=== PATIENT | male | born 1950 | race Caucasian/White ===

== ENCOUNTER → 2018-11-25 | Outpatient (CLI) | payer MEDICARE, OTHER ==
--- NOTE | 2018-11-25 18:43 | ECHOF ---
Referral Reason:R01.1 Cardiac Murmur MEASUREMENTS -------- HEIGHT: 190.5 cm WEIGHT: 117.9 kg BP: RVIDd: 4.3 cm (< 3.3) IVSd: 1.4 cm (0.6 - 1.1) LVIDd: 4.1 cm (3.9 - 5.3) LVPWd: 1.8 cm (0.6 - 1.1) IVSs: 2.1 cm LVIDs: 2.7 cm LVPWs: 2.4 cm LAESV Index (A-L): 41.80 ml/m Ao Diam: 4.2 cm (2.0 - 3.7) AV Cusp: 1.5 cm (1.5 - 2.6) MV EXCURSION: 14.396 mm (> 18.000) MV EF SLOPE: 58 mm/s (70 - 150) EPSS: 0.9 cm MV E Gerry: 0.87 m/s MV DecT: 357 ms MV A Gerry: 1.16 m/s MV E/A Ratio: 0.75 AV maxP.57 mmHg AV meanP.61 mmHg RAP: 5.00 mmHg RVSP: 30.50 mmHg FINDINGS -------- Resting bradycardia (HR<60bpm). This was a technically adequate study. The left ventricular size is normal. There is moderate concentric left ventricular hypertrophy. O verall left ventricular systolic function is normal with, an EF between 55 - 60 %. Increased Lap Gr jeana II Diastolic Dysfunction. Septal wall motion is delayed and consistent with prior cardiac surge ry. The right ventricle is moderately enlarged. LA is severely dilated >40 ml/m2 The right atrium is mildly enlarged. Interatrial and interventricular septum intact. There is moderate aortic valve sclerosis. There is no evidence of aortic regurgitation. There is mild aortic stenosis present. Peak/mean gradient across the Aortic Valve is 22.57mmHg / 10.61mmHg. Moderate mitral annular calcification present. Mild mitral regurgitation is present. Mild tricuspid regurgitation present. There is no evidence of pulmonary hypertension. The right v entricular systolic pressure, as measured by Doppler, is 30.50mmHg. Trace/mild (physiologic) pulmonic regurgitation. The aortic root is dilated measuring {4.2 cm}. IVC Not well visulized. There is no pericardial effusion. CONCLUSIONS -------- 1. Resting bradycardia (HR<60bpm). 2. This was a technically adequate study. 3. The left ventricular size is normal. 4. There is moderate concentric left ventricular hypertrophy. 5. Overall left ventricular systolic function is normal with, an EF between 55 - 60 %. 6. Increased Lap Grade II Diastolic Dysfunction. 7. Septal wall motion is delayed and consistent with prior cardiac surgery. 8. The right ventricle is moderately enlarged. 9. LA is severely dilated >40 ml/m2 10. The right atrium is mildly enlarged. 11. Interatrial and interventricular septum intact. 12. There is moderate aortic valve sclerosis. 13. There is no evidence of aortic regurgitation. 14. There is mild aortic stenosis present. 15. Peak/mean gradient across the Aortic Valve is 22.57mmHg / 10.61mmHg. 16. Moderate mitral annular calcification present. 17. Mild mitral regurgitation is present. 18. Mild tricuspid regurgitation present. 19. There is no evidence of pulmonary hypertension. 20. The right ventricular systolic pressure, as measured by Doppler, is 30.50mmHg. 21. Trace/mild (physiologic) pulmonic regurgitation. 22. The aortic root is dilated measuring 4.2cm. 23. IVC Not well visulized. 24. There is no pericardial effusion. [employer]BILE [employer]ROL OFFICER: Neeru Kyle RDCS
== END | disposition home or self-care (01) ==
LOC: RADECHMAIN 12:59
PROVIDERS: ATTEND Family Medicine
DX: I35.0 Nonrheumatic aortic (valve) stenosis (principal); I37.1 Nonrheumatic pulmonary valve insufficiency; I08.1 Rheumatic disorders of both mitral and tricuspid valves
CPT/HCPCS: 93306

== ENCOUNTER → 2023-12-28 | Outpatient (CLI) | payer MEDICARE, OTHER ==
[2023-12-28 15:18] LABS: Appearance,Urine Clear (Clear); Bilirubin,Urine Negative (Negative); Blood,Urine Negative (Negative); Color,Urine Yellow (Yellow); Ketones,Urine Negative (Negative); Nitrite,Urine Negative (Negative); Specific Gravity,Urine 1.017 (1.001-1.030)
[2023-12-28 15:34] LABS: ALT 15 U/L (10-49); AST 16 U/L (14-35); Albumin 4.1 g/dL (3.8-4.9); Albumin/Globulin Ratio 1.86 Ratio (1.60-3.17); Alkaline Phosphatase 61 U/L (41-126); Calcium 8.9 mg/dL (8.7-10.3); Carbon Dioxide 24.9 mmol/L (21.6-31.8); Chloride 106 mmol/L (96-109); Chol/HDL Ratio 3.81 Ratio; Globulin 2.2 g/dL (1.6-3.3); Glucose 109 mg/dL (70-110); LDL Cholesterol,Calculated 70.5 mg/dL (0.0-131.0); Potassium 4.4 mmol/L (3.5-5.5); Sodium 143 mmol/L (135-145); Total Bilirubin 0.7 mg/dL (0.3-1.2); Total Protein 6.3 g/dL (6.2-8.2)
[2023-12-28 16:23] LABS: HCT 42.6 % (39.6-50.0); HGB 14.4 g/dL (13.0-17.0); MCH 32.4 pg (27.0-32.0); MCHC 33.8 g/dL (32.0-37.0); MCV 95.9 FL (80.0-97.0); Mean Platelet Volume 10.9 FL (9.5-12.2); NRBC Per 100 WBC 0 X 10*3/uL (0.00-0.01); Platelet Count 161 X 10*3/uL (140-440); RBC 4.44 X 10*6/uL (4.40-5.60); RDW 13.9 % (11.5-14.5); WBC 4.94 X 10*3/uL (4.50-10.00)
[2023-12-28 18:55] LABS: Microalbumin Creatinine Ratio <10 mg/g Cr (0-30)
== END | disposition home or self-care (01) ==
LOC: LABWHC1 11:28
PROVIDERS: ATTEND Family Medicine
DX: I10 Essential (primary) hypertension (principal); E78.5 Hyperlipidemia, unspecified; E11.9 Type 2 diabetes mellitus without complications; N40.1 Benign prostatic hyperplasia with lower urinary tract symptoms; E55.9 Vitamin D deficiency, unspecified
CPT/HCPCS: 36415; 80053; 80061; 81003; 82043; 82306; 82570; 83036; 84153; 85027

== ENCOUNTER → 2024-05-24 | Outpatient (CLI) | payer MEDICARE, OTHER ==
[2024-05-24 10:29] LABS: African American GFR (CKD) 59 (>60 ml/min/1.73 sqM); Blood Urea Nitrogen 18 mg/dL (9-20); Non-African American GFR(CKD) 51 (>60 ml/min/1.73 sqM)
--- NOTE | 2024-05-24 13:41 | CT ---
EXAMINATION TYPE: CT angio abd aorta w/Runoff CT DLP: 2499 mGycm, Automated exposure control for dose reduction was used. DATE OF EXAM: 05/24/2024 11:54 AM COMPARISON:None. CLINICAL INDICATION:Male, 74 years old with history of I70.219 EXTRM W INTRMT JEY; LEFT SIDE WEAKNE SS TECHNIQUE: Multiple thin slice sub-millimeter images were obtained through the abdomen, pelvis, and l ower extremities before and after administration of contrast. Patient was given Isovue 370, 100 cc in travenously. 3-D reconstructed images and maximum intensity projection images were obtained of the a bdomen, pelvis, and lower extremities. FINDINGS: CTA Abdomen and pelvis: Mid to distal abdominal aortic fusiform aneurysm with eccentric mural thrombu s and cobweb appearance measuring 4.7 x 3.7 cm (series 11, image 111). Atherosclerotic plaquing is id entified within the abdominal aorta. No evidence for dissection or intramural hematoma. The origins of the superior mesenteric artery, renal arteries, inferior mesenteric artery, and celiac axis are pa tent. High-grade stenosis involving single right renal artery just after the origin. Mild stenosis i nvolving the larger more superior left renal artery of the 2 renal arteries. Atherosclerotic plaquing with some mural thrombus formation is identified in the common iliac arteries. The bilateral internet salesperson al and external iliac arteries are widely patent without significant atherosclerotic disease. CTA Lower extremities: Right: The common femoral is patent. There is moderate short segment stenosis of the common femoral a rtery just before the bifurcation with calcified plaque. The superficial and deep femoral arteries ar e widely patent. The popliteal artery is patent. Anterior and posterior tibial arteries as well as th e peroneal artery are patent. Anterior and posterior tibial arteries cross the ankle. Left: The common femoral is patent. Moderate short segment stenosis of the common femoral artery just before the bifurcation with calcified and noncalcified plaque. The deep femoral artery is patent. Mu ltifocal short segment occlusion versus high-grade stenosis involving the proximal superficial femora l artery. Multifocal moderate stenosis of the distal superficial femoral artery. The popliteal artery is patent. Multifocal moderate short segment stenosis of the popliteal artery secondary to calcified plaque. Anterior and posterior tibial arteries as well as the peroneal artery are patent. Anterior a nd posterior tibial arteries cross the ankle. VISCERA: The liver, spleen, adrenal glands, kidneys, pancreas, and gallbladder are not optimally enha nced due the arterial phase utilized. LIVER: No focal lesion. Enlarged measuring at least 19.9 cm in CC dimension. The right hepatic dome i s not included in the [id number]. GALLBLADDER AND BILE DUCTS: Unremarkable. PANCREAS: Unremarkable. SPLEEN: Enlarged measuring 15.9 cm in CC dimension. ADRENAL GLANDS: Unremarkable. KIDNEYS AND URETERS: No evidence of hydronephrosis. No right renal calculus. Nonobstructive left ronnie l 3 mm calculus. Couple of left renal simple cyst measuring up to 1.9 cm. Right renal 1 cm cyst. No f ollow-up recommended. Cortical thinning of the right kidney compared to the left. PELVIS BLADDER: Unremarkable REPRODUCTIVE: Unremarkable. ABDOMEN & PELVIS STOMACH AND BOWEL: Stomach and duodenum are unremarkable. Colonic diverticulosis without evidence for acute diverticulitis. Most pronounced along the sigmoid colon. The appendix is within normal limits. No evidence of bowel obstruction. PERITONEUM: No evidence of pneumoperitoneum or free fluid. MUSCULOSKELETAL: No acute osseous abnormalities. Multilevel degenerative disc disease of the lumbar s pine. Osteoarthritic changes of the left ankle. LYMPH NODES: No evidence for lymphadenopathy. SOFT TISSUE/ABDOMINAL WALL: Small bilateral fat filled inguinal hernias. IMPRESSION: 1. Abdominal aortic aneurysm measuring 4.7 x 3.7 cm. 2. Moderate atherosclerotic disease involving abdominal aorta and lower extremity vasculature. High- grade stenosis secondary to calcified plaque involving the proximal right renal artery. Moderate shor t segment stenosis involving the right common femoral artery secondary to calcified plaque. Moderate short segment stenosis involving the left common femoral artery secondary to calcified and noncalcif ied plaque. Multifocal moderate stenosis involving the proximal and distal left superficial femoral a rtery and also the left popliteal artery. 3. At least two vessels are seen crossing the ankle joint. 4. Hepatosplenomegaly. 5. Colonic diverticulosis without evidence for acute diverticulitis. 6. Nonobstructive left renal calculus. [facility], , 05/24/2024 1:38 PM
== END | disposition home or self-care (01) ==
LOC: RADCTMAIN 09:42
PROVIDERS: ATTEND Surgery
DX: I70.1 Atherosclerosis of renal artery (principal); I70.219 Atherosclerosis of native arteries of extremities with intermittent claudication, unspecified extremity; N20.0 Calculus of kidney; I70.0 Atherosclerosis of aorta; I71.40 Abdominal aortic aneurysm, without rupture, unspecified; R16.2 Hepatomegaly with splenomegaly, not elsewhere classified; K57.30 Diverticulosis of large intestine without perforation or abscess without bleeding
CPT/HCPCS: 82565; 84520; 75635; Q9967

== ENCOUNTER → 2024-06-08 | Outpatient (CLI) | payer MEDICARE, OTHER ==
[2024-06-08 20:27] LABS: ALT 14 U/L (10-49); AST 18 U/L (14-35); BUN/Creat Ratio 13.36 Ratio (12.00-20.00); Blood Urea Nitrogen 18.7 mg/dL (9.0-27.0); Calcium 9.2 mg/dL (8.7-10.3); Carbon Dioxide 24.1 mmol/L (21.6-31.8); Chloride 105 mmol/L (96-109); Chol/HDL Ratio 3.92 Ratio; Glucose 108 mg/dL (70-110); LDL Cholesterol,Calculated 84.9 mg/dL (0.0-131.0); Potassium 4.2 mmol/L (3.5-5.5); Prostate Specific Antigen 2.31 ng/mL (0.000-6.500); Sodium 141 mmol/L (135-145)
[2024-06-08 20:38] LABS: HGB 14.9 g/dL (13.0-17.0); MCH 32.9 pg (27.0-32.0); MCHC 33.9 g/dL (32.0-37.0); MCV 97.1 FL (80.0-97.0); Mean Platelet Volume 10.8 FL (9.5-12.2); NRBC Per 100 WBC 0 X 10*3/uL (0.00-0.01); Platelet Count 133 X 10*3/uL (140-440); RBC 4.53 X 10*6/uL (4.40-5.60); RDW 13.9 % (11.5-14.5); WBC 4.28 X 10*3/uL (4.50-10.00)
== END | disposition home or self-care (01) ==
LOC: LABWHC1 12:01
PROVIDERS: ATTEND Family Medicine
DX: N40.1 Benign prostatic hyperplasia with lower urinary tract symptoms (principal); E78.5 Hyperlipidemia, unspecified; E55.9 Vitamin D deficiency, unspecified; I10 Essential (primary) hypertension
CPT/HCPCS: 36415; 80048; 80061; 82306; 83036; 84153; 84450; 84460; 85027

== ENCOUNTER → 2024-07-19 | Outpatient (CLI) | payer MEDICARE, OTHER ==
[2024-07-19 15:51] LABS: Basophils # (A) 0.02 X 10*3/uL (0.00-0.10); Basophils % (A) 0.4 %; Eosinophils # (A) 0.05 X 10*3/uL (0.04-0.35); Eosinophils % (A) 1.1 %; HCT 45.3 % (39.6-50.0); HGB 15.3 g/dL (13.0-17.0); Lymphocytes # (A) 1.23 X 10*3/uL (0.90-5.00); Lymphocytes % (A) 26.2 %; MCH 32.9 pg (27.0-32.0); MCHC 33.8 g/dL (32.0-37.0); MCV 97.4 FL (80.0-97.0); Monocytes # (A) 0.47 X 10*3/uL (0.20-1.00); NRBC Per 100 WBC 0 X 10*3/uL (0.00-0.01); Neutrophils % (A) 61.9 %; Platelet Count 135 X 10*3/uL (140-440); RBC 4.65 X 10*6/uL (4.40-5.60); RDW 13.8 % (11.5-14.5); WBC 4.69 X 10*3/uL (4.50-10.00)
[2024-07-19 16:16] LABS: BUN/Creat Ratio 14.69 Ratio (12.00-20.00); Blood Urea Nitrogen 19.1 mg/dL (9.0-27.0); Calcium 9.1 mg/dL (8.7-10.3); Carbon Dioxide 24.3 mmol/L (21.6-31.8); Chloride 105 mmol/L (96-109); Glucose 116 mg/dL (70-110); Potassium 4.2 mmol/L (3.5-5.5); Prostate Specific Antigen 2.19 ng/mL (0.000-6.500); Sodium 140 mmol/L (135-145)
== END | disposition home or self-care (01) ==
LOC: LABWHC1 11:48
PROVIDERS: ATTEND Family Medicine
DX: D70.9 Neutropenia, unspecified (principal); R97.20 Elevated prostate specific antigen [PSA]; N28.9 Disorder of kidney and ureter, unspecified
CPT/HCPCS: 36415; 80048; 84153; 85025

== ENCOUNTER → 2024-07-31 | Outpatient (CLI) | payer MEDICARE, OTHER | END | disposition home or self-care (01) | LOC: LABWHC1 12:24 | PROVIDERS: ATTEND Family Medicine | DX: R97.20 Elevated prostate specific antigen [PSA] (principal) | CPT/HCPCS: 36415; 84153 ==